=== PATIENT | female | born 1970 | race Native Hawaiian/Other Pacific Islander ===

== ENCOUNTER 2017-08-22 16:23 | Emergency (ER) | payer OTHER ==
[~2017-08-22] VITALS: Ht 162.6 cm; Wt 95.3 kg
[2017-08-22 18:31] VITALS: BP 151/74; TEMP 98.2
== END 2017-08-22 18:39 | disposition home or self-care (01) ==
LOC: ED 16:23
DX: B34.9 Viral infection, unspecified (principal)
CPT/HCPCS: 87804; 99282

== ENCOUNTER 2018-02-13 12:34 | Emergency (ER) | payer OTHER ==
[~2018-02-13] VITALS: Ht 162.6 cm; Wt 99.8 kg
[2018-02-13 12:40] VITALS: TEMP 98.1
[2018-02-13 16:11] VITALS: BP 147/64
== END 2018-02-13 16:14 | disposition home or self-care (01) ==
LOC: ED 12:34
DX: S30.861A Insect bite (nonvenomous) of abdominal wall, initial encounter (principal); W57.XXXA Bitten or stung by nonvenomous insect and other nonvenomous arthropods, initial encounter; Y92.89 Other specified places as the place of occurrence of the external cause
CPT/HCPCS: 96372; 99283; J1200; J1885; J2930

== ENCOUNTER 2018-07-11 15:57 | Emergency (ER) | payer OTHER ==
[~2018-07-11] VITALS: Ht 162.6 cm; Wt 99.8 kg
[2018-07-11 16:21] VITALS: TEMP 98.1
[2018-07-11 18:34] VITALS: BP 163/96
== END 2018-07-11 18:34 | disposition home or self-care (01) ==
LOC: ED 15:57
DX: S60.222A Contusion of left hand, initial encounter (principal); W24.0XXA Contact with lifting devices, not elsewhere classified, initial encounter; Y92.89 Other specified places as the place of occurrence of the external cause
CPT/HCPCS: 99282

== ENCOUNTER 2018-12-20 02:55 | Emergency (ER) | payer OTHER ==
[~2018-12-20] VITALS: Ht 162.6 cm; Wt 95.3 kg
[2018-12-20 04:43] LABS: PLATELET COUNT 555 K/uL (152-353)
[2018-12-20 04:51] LABS: POTASSIUM 4.3 mmol/L (3.6-5.2)
[2018-12-20 05:45] VITALS: BP 141/86; TEMP 98.4
== END 2018-12-20 05:45 | disposition home or self-care (01) ==
LOC: ED 02:55
PROVIDERS: Emergency Medicine
DX: K52.9 Noninfective gastroenteritis and colitis, unspecified (principal)
CPT/HCPCS: 36415; 80053; 85027; 87502; 96361; 96365; 96374; 99284; J2405

== ENCOUNTER 2019-12-29 12:40 | Outpatient (CLI) | payer OTHER | END 2019-12-29 22:27 | disposition home or self-care (01) | LOC: RAD 12:40 | DX: J20.9 Acute bronchitis, unspecified (principal) ==

== ENCOUNTER 2020-10-15 07:43 | Outpatient (CLI) | payer OTHER ==
[2020-10-15 09:21] LABS: PLATELET COUNT 614 K/uL (152-353)
== END 2020-10-15 20:37 | disposition home or self-care (01) ==
LOC: INF 07:43
PROVIDERS: ATTEND Family Medicine
PROC: 30233N1 Transfusion of Nonautologous Red Blood Cells into Peripheral Vein, Percutaneous Approach (ICD-10-PCS; principal; 2020-10-15)
DX: D50.9 Iron deficiency anemia, unspecified (principal); N92.0 Excessive and frequent menstruation with regular cycle; R53.1 Weakness; R53.83 Other fatigue; R06.02 Shortness of breath; R42 Dizziness and giddiness
CPT/HCPCS: 36430; 85027; 86850; 86900; 86901; 86922; P9016

== ENCOUNTER 2020-10-16 07:55 | Outpatient (CLI) | payer OTHER ==
[2020-10-16 08:43] LABS: PLATELET COUNT 568 K/uL (152-353)
== END 2020-10-16 19:32 | disposition home or self-care (01) ==
LOC: LABW 07:55
PROVIDERS: ATTEND Pediatrics
DX: D69.51 Posttransfusion purpura (principal)
CPT/HCPCS: 36415; 85027

== ENCOUNTER 2021-01-03 12:05 | Outpatient (CLI) | payer OTHER | END 2021-01-03 19:35 | disposition home or self-care (01) | LOC: LABW 12:05 | PROVIDERS: ATTEND Family Medicine | DX: B00.1 Herpesviral vesicular dermatitis (principal); Z20.2 Contact with and (suspected) exposure to infections with a predominantly sexual mode of transmission | CPT/HCPCS: 36415; 86695; 86696 ==

== ENCOUNTER 2021-01-26 08:25 | Outpatient (CLI) | payer OTHER | END 2021-01-26 22:40 | disposition home or self-care (01) | LOC: MAMMO 08:25 | PROVIDERS: ATTEND Family Medicine | DX: Z12.31 Encounter for screening mammogram for malignant neoplasm of breast (principal) ==

== ENCOUNTER 2021-07-10 17:33 | Outpatient (CLI) | payer OTHER ==
[2021-07-10 18:21] LABS: POTASSIUM 4.3 mmol/L (3.6-5.2)
== END 2021-07-10 19:46 | disposition home or self-care (01) ==
LOC: LABW 17:33
PROVIDERS: ATTEND Family Medicine
DX: R60.0 Localized edema (principal)
CPT/HCPCS: 36415; 80053

== ENCOUNTER 2021-11-01 08:05 | Outpatient (CLI) | payer OTHER | END 2021-11-01 19:01 | disposition home or self-care (01) | LOC: LAB 08:05 | PROVIDERS: ATTEND Family Medicine | DX: R05.9 Cough, unspecified (principal); J02.9 Acute pharyngitis, unspecified; R53.83 Other fatigue; Z11.52 Encounter for screening for COVID-19 | CPT/HCPCS: 87635; G2023; U0003 ==

== ENCOUNTER 2022-09-25 08:51 | Outpatient (CLI) | payer OTHER | END 2022-09-25 23:07 | disposition home or self-care (01) | LOC: MAMMO 08:51 | PROVIDERS: ATTEND Nurse Practitioner Family | DX: Z12.31 Encounter for screening mammogram for malignant neoplasm of breast (principal) ==

== ENCOUNTER → 2022-11-15 | Outpatient (CLI) | payer OTHER | LOC: US 10-02 08:30 | PROVIDERS: ATTEND Nurse Practitioner Family | DX: R92.2 Inconclusive mammogram (principal); R74.8 Abnormal levels of other serum enzymes ==

== ENCOUNTER 2022-12-25 11:30 | Emergency (ER) | payer OTHER ==
[~2022-12-25] VITALS: Ht 162.6 cm; Wt 130.6 kg
[2022-12-25 11:35] VITALS: BP 141/87; TEMP 98.8
[2022-12-25 12:01] LABS: PLATELET COUNT 362 K/uL (152-353)
[2022-12-25 12:08] LABS: POTASSIUM 4.3 mmol/L (3.6-5.2)
== END 2022-12-25 14:29 | disposition home or self-care (01) ==
LOC: ED 11:30
PROVIDERS: Emergency Medicine
DX: K52.9 Noninfective gastroenteritis and colitis, unspecified (principal)
CPT/HCPCS: 80053; 81002; 82150; 83690; 85027; 96374; 99284; J2405

== ENCOUNTER 2022-12-26 16:08 | Emergency (ER) | payer OTHER ==
[~2022-12-26] VITALS: Ht 162.6 cm; Wt 113.4 kg
[2022-12-26 16:15] VITALS: TEMP 98.2
[2022-12-26 19:15] VITALS: BP 125/72
== END 2022-12-26 19:15 | disposition home or self-care (01) ==
LOC: ED 16:08
DX: A08.4 Viral intestinal infection, unspecified (principal)
CPT/HCPCS: 96361; 96374; 99284; J2550

== ENCOUNTER 2023-03-20 09:32 | Outpatient (CLI) | payer OTHER | END 2023-03-20 19:05 | disposition home or self-care (01) | LOC: RAD 09:32 | PROVIDERS: ATTEND Nurse Practitioner Family | DX: M25.561 Pain in right knee (principal) ==

== ENCOUNTER 2023-04-04 16:03 | Outpatient (CLI) | payer OTHER ==
[2023-04-04 16:22] LABS: PLATELET COUNT 411 K/uL (152-353)
[2023-04-04 16:43] LABS: POTASSIUM 4.1 mmol/L (3.6-5.2)
== END 2023-04-04 19:03 | disposition home or self-care (01) ==
LOC: LABW 16:03
PROVIDERS: ATTEND Nurse Practitioner Family
DX: R60.0 Localized edema (principal); Z13.1 Encounter for screening for diabetes mellitus; Z79.890 Hormone replacement therapy; Z13.220 Encounter for screening for lipoid disorders
CPT/HCPCS: 36415; 80053; 80061; 82306; 82607; 83036; 83880; 84439; 84443; 84481; 85027; 86376